=== PATIENT | female | born 1995 | race Hispanic/Latino ===

== ENCOUNTER 2018-06-14 14:32 | Emergency (ER) | payer SELFPAY ==
[2018-06-14] MEDS ORDERED: ONDANSETRON ODT 4 MG TAB ONE (14:47)
[2018-06-14] MEDS ORDERED: CEFTRIAXONE SODIUM 1 GM ONE (14:51)
[2018-06-14 15:08] LABS: APPEARANCE,URINE Clear (CLEAR); BILIRUBIN,URINE Negative (NEGATIVE); COLOR,URINE Yellow (YELLOW); GLUCOSE, URINE (UA) Negative (NEGATIVE); KETONES,URINE Negative (NEGATIVE); LEUKOCYTE ESTERASE ,URINE Moderate (NEGATIVE); NITRATE,URINE Negative (NEGATIVE); OCCULT BLOOD,URINE Negative (NEGATIVE); PROTEIN,URINE Negative (NEGATIVE)
[2018-06-14 15:09] LABS: HCG,QUAL RESULT NEGATIVE (NEGATIVE)
[2018-06-14 15:21] LABS: TRICHOMONAS,URINE Moderate /LPF (None Seen)
[2018-06-14 15:22] LABS: BACTERIA,URINE Few /HPF (None Seen); SQUAMOUS EPITHELIAL CELL,UR 30-50 /HPF (0-2)
[2018-06-14] MEDS ORDERED: AZITHROMYCIN 250 MG TABLET PO ONE (15:42)
== END 2018-06-14 16:00 | disposition home or self-care (01) ==
LOC: EDH 14:32
DX: A59.01 Trichomonal vulvovaginitis (principal); Z72.0 Tobacco use
CPT/HCPCS: 81001; 81025; 87088; 87486; 87797; 96372; 99284; J0696